=== PATIENT | male | born 1960 | race Caucasian/White ===

== ENCOUNTER 2022-09-12 07:54 | Outpatient (CLI) | payer BC, SELFPAY ==
--- NOTE | 2022-09-12 09:12 | W.ANESCHARGE ---
Anesthesia Charges Start Date/Time Anesthesia Start Date: 09/12/22 Anesthesia Start Time: 08:45 Stop Date/Time Anesthesia Stop Date: 09/12/22 Anesthesia Stop Time: 09:05
--- NOTE | 2022-09-12 10:11 | W.ANESCHARGE ---
Anesthesia Charges Start Date/Time Anesthesia Start Date: 09/12/22 Anesthesia Start Time: 08:45 Stop Date/Time Anesthesia Stop Date: 09/12/22 Anesthesia Stop Time: 09:05
== END 2022-09-12 07:55 | disposition home or self-care (01) ==
PROVIDERS: PCP Surgery; Visit Provider Internal Medicine Gastroenterology
DX: Z12.11 Encounter for screening for malignant neoplasm of colon (principal)
CPT/HCPCS: 45378; 812; J2704